=== PATIENT | female | born 1970 | race Caucasian/White ===

== ENCOUNTER 2021-02-28 21:10 | Emergency (ER) | payer SELFPAY ==
[2021-02-28 21:27] VITALS: BP 155/85; PULSE 110; RESP 20; TEMP 36.4; O2SAT 96; BMI 29.2
[2021-02-28] MEDS: nicotine 21 mg Patch 1 PATCH TRANSDERMA (22:18)
[2021-02-28] MEDS: ziprasidone 20 mg/mL SDV IM (22:23)
[2021-02-28] MEDS: water for injection-sterile 10 ML (22:24)
[2021-02-28 22:31] LABS: Eosinophils % 1.8 %; Mean Corpuscular HGB Conc 33.9 g/dL (30.0-36.0); Mean Corpuscular Hemoglobin 32.3 pg (28.0-34.0); Mean Corpuscular Volume 95.1 fl (81-99); Nucleated Red Blood Cells % 0 %
[2021-02-28 22:33] LABS: Basophils # 0.1 10^3/uL (0.0-0.1); Basophils % 0.8 %; Eosinophils # 0.3 10^3/uL (0.0-0.8); Hematocrit 50.1 % (37.0-47.0); Lymphocytes # 4.6 10^3/uL (0.8-4.8); Lymphocytes % 29.1 %; Mean Platelet Volume 9.2 fL (7.4-10.4); Monocytes # 1.1 10^3/uL (0.2-0.9); Monocytes % 6.8 %; Neutrophils # 9.62 10^3/uL (1.8-7.7); Neutrophils % 61.1 %; Platelet Count 532 10^3/cmm (130-400); Red Blood Count 5.27 10^6/uL (4.1-5.3); White Blood Count 15.8 10^3/uL (4.0-10.0)
[2021-02-28 22:34] LABS: HCG Qualitative Urine. Negative (Negative)
[2021-02-28 22:38] LABS: Add Urine Microscopic? NO; Charge for UA Resulting for Rev
[2021-02-28 22:51] LABS: Bilirubin Urine Neg (Negative); Blood Urine Neg (Negative); Glucose Urine UA Norm (Normal); Ketones Urine Negative (Negative); Leukocyte Esterase Urine Negative (Negative); Nitrate Urine Negative (Negative); Protein Urine Neg (Negative); Specific Gravity, Urine 1.005 (1.005-1.030); Urine Appearance Clear (CLEAR); Urine Color Straw (Yellow); Urobilinogen Urine Norm (Negative); pH Urine 5 (5-7)
[2021-02-28 22:57] LABS: Amphetamines Screen Urine Negative (Negative); Barbiturates Screen Urine Negative (Negative); Benzodiazepines Screen Urine Negative (Negative); Cocaine Screen Urine Negative (Negative); Opiate Screen Urine Negative (Negative); PCP Screen Urine Negative (Negative); THC Screen Urine Negative (Negative)
[2021-02-28 23:00] LABS: Alanine Aminotransferase 41 U/L (0-33); Albumin Level 4.7 g/dL (3.5-5.2); Alcohol Level 174 mg/dL (0-10); Alkaline Phosphatase 93 IU/L (35-105); Anion Gap 20.6 (5-19); Aspartate Amino Transferase 29 U/L (0-32); Blood Urea Nitrogen 7 mg/dL (6-20); Calcium 9.7 mg/dL (8.5-10.5); Carbon Dioxide 20 mmol/L (22-29); Chloride 100 mmol/L (98-107); Globulin 2.9 g/dL (1.3-4.6); Glomerular Filtration Rate 106.3 mL/min (90-130); Glucose 96 mg/dL (65-115); Osmolality Calculated 280 mOsm/kg (285-295); Potassium 4.6 mmol/L (3.5-5.1); Sodium 136 mmol/L (136-145); Total Bilirubin 0.2 mg/dL (0.15-1.2); Total Protein 7.6 g/dL (6.6-8.7)
[2021-02-28 23:02] LABS: Acetaminophen < 5.0 ug/mL (10-30); Salicylate < 0.3 mg/dL (3-10)
--- NOTE | 2021-02-28 23:04 | PC.NURSE ---
patient asked to have her neighbor called for ride home in a couple hours, neighbor called reports he will not come get her because there is too much drama.
[2021-02-28 23:22] LABS: Slide Review Slide Review Perform
--- NOTE | 2021-03-01 00:20 | W.ED.PSYCH ---
HPI - Psych General: Chief Complaint: Psychiatric Symptoms Stated Complaint: MHE Time Seen by Provider: 02/28/21 21:42 History of Present Illness: HPI Narrative: 50-year-old female who presents with anxiety . She states a lot of things are stressing her out in her life currently. She does make note that when she leaves during the daytime, people come into her house and switch things around. She says it is getting out of hand . She evidently denies suicidal ideation or homicidal ideation. She denies any hallucinations both auditory and visual. She states that she has not slept well. She says I just want some rest. complaint: feels depressed Onset (ago): day(s) Duration: constant History of same: Yes Relieving factors: none Exacerbating factors: none Associated psychiatric symptoms: depression Associated symptoms: Reports delusions and depression; Deny auditory hallucinations, visual hallucinations, homicidal ideation, suicidal ideation or racing thoughts Review of Systems Const: Denies: fever(s) or chills Eyes: Denies: change in vision ENMT: Reports: nasal discharge, nasal congestion and post nasal drip; Denies: throat pain, swelling of lips/tongue, ear or mastoid pain or sinus pain Card: Denies: chest pain Resp: Denies: dyspnea, productive cough or non-productive cough GI: Denies: abdominal pain, nausea or vomiting Psych: Reports: depression; Denies: visual hallucinations, auditory hallucinations, suicidal ideation or homicidal ideation Physical Exam Const: COMMON NORMALS: alert GENERAL APPEARANCE: anxious; not ill appearing and not frail appearing HENMT: COMMON NORMALS: normocephalic HEAD & SCALP: normocephalic Eye: COMMON NORMALS: Equal, round and reactive pupils present and EOMs intact bilaterally PUPIL: Yes Equal, round and reactive pupils present Chest: COMMONS NORMALS: normal inspection of the chest Resp: COMMON NORMALS: normal respiratory effort, No use of accessory muscles and clear to auscultation bilaterally AUSCULTATION: clear to auscultation bilaterally Cardio: COMMON NORMALS: regular rate and regular rhythm RATE: regular rate RHYTHM: regular rhythm GI: COMMON NORMALS: Normal to inspection, nondistended, normoactive bowel sounds present, Soft to palpation and non-tender PALPATION: Yes Soft to palpation Neuro: DAVINA COMA SCALE: document GCS findings Davina coma scale eye opening: Spontaneous Davina coma scale verbal response: Orientated [place] coma scale motor response: [place] commands [place] coma scale total score: 15 SENSORIUM/ORIENTATION: Yes alert SPEECH: speech normal GAIT: Yes Normal gait present Psych: COMMON NORMALS: speech normal APPEARANCE: Yes unkempt ATTITUDE: Yes engaged ACTIVITY/MOTOR BEHAVIOR: Yes appropriate eye contact SPEECH: Yes normal speech MOOD & AFFECT: Yes depressed mood and Yes tearful THOUGHT PROCESS: No confused and Loose association thought process present (mild) THOUGHT CONTENT: No Suicidality present, No Homicidality present, Yes delusions and No Hallucination(s) present ATTENTION/CONCENTRATION: Yes attention grossly intact and Yes concentration grossly intact MEMORY/COGNITION: Yes memory grossly intact and Yes cognition grossly intact INSIGHT: Fair insight present (Psych) JUDGEMENT: Fair judgement present (Psych) Course Vital Signs: Vital signs: Vital Signs Temperature 97.5 F L 02/28/21 21:27 Pulse Rate 92 03/01/21 01:17 Respiratory Rate 16 03/01/21 01:17 Blood Pressure 147/82 03/01/21 01:17 Pulse Oximetry 96 03/01/21 01:17 MDM - Psych MDM Narrative: Medical decision making narrative: Patient medically appears stable. She does have a mild leukocytosis. Her bicarbonate level is low indicating some mild dehydration likely. She is awake and alert. She answers most questions appropriately. She denies suicidality or homicidality. She does appear to have some delusions historically. She does not appear to be a danger to herself. She wishes to go home after injection of Geodon, and some rest here. She is worried about her cat. She appears much improved. She will be allowed discharge Lab Data: Labs: Lab Results 02/28/21 02/28/21 02/28/21 22:08 22:08 22:08 WBC RBC Hgb Hct MCV MCH MCHC RDW Plt Count MPV Neut % (Auto) Lymph % (Auto) [place] % (Auto) Eos % (Auto) Baso % (Auto) Neut # (Auto) Lymph # (Auto) [place] # (Auto) Eos # (Auto) Baso # (Auto) Nucleated RBC % (a uto) Nucleated RBCs # Sodium Potassium Chloride Carbon Dioxide Anion Gap BUN Creatinine GFR Calculation Glucose Calculated Osmolal ity Calcium Total Bilirubin AST ALT Alkaline Phosphata se Total Protein Albumin Globulin HCG, Qual Negative (Negative) Urine Color Straw (Yellow) Urine Appearance Clear (CLEAR) Urine pH 5 (5-7) Ur Specific Gravit y 1.005 (1.005-1.030) Urine Protein Neg (Negative) Urine Glucose (UA) Norm (Normal) Urine Ketones Negative (Negative) Urine Blood Neg (Negative) Urine Nitrate Negative (Negative) Urine Bilirubin Neg (Negative) Urine Urobilinogen Norm mg/dL mg/dL (Negative) Ur Leukocyte Porsche ase Negative (Negative) Salicylates Urine Opiates Scre en Negative ng/mL ng /mL (Negative) Acetaminophen Ur Barbiturates Sc reen Negative ng/mL ng /mL (Negative) Ur Phencyclidine S crn Negative ng/mL ng /mL (Negative) Ur Amphetamines Sc reen Negative ng/mL ng /mL (Negative) U Benzodiazepines Scrn Negative ng/mL ng /mL (Negative) Urine Cocaine Scre en Negative ng/mL ng /mL (Negative) U Marijuana (THC) Screen Negative ng/mL ng /mL (Negative) Ethyl Alcohol 02/28/21 02/28/21 22:12 22:12 WBC 15.8 10^3/uL H 10 ^3/uL (4.0-10.0) RBC 5.27 10^6/uL 10^6 /uL (4.1-5.3) Hgb 17.0 g/dL H g/dL (11.5-15.3) Hct 50.1 % H % (37.0-47.0) MCV 95.1 fl fl (81-99) MCH 32.3 pg pg (28.0-34.0) MCHC 33.9 g/dL g/dL (30.0-36.0) RDW 12.0 % L % (12.1-15.1) Plt Count 532 10^3/cmm H 10 ^3/cmm (130-400) MPV 9.2 fL fL (7.4-10.4) Neut % (Auto) 61.1 % % Lymph % (Auto) 29.1 % % [place] % (Auto) 6.8 % % Eos % (Auto) 1.8 % % Baso % (Auto) 0.8 % % Neut # (Auto) 9.62 10^3/uL H 10 ^3/uL (1.8-7.7) Lymph # (Auto) 4.6 10^3/uL 10^3/ uL (0.8-4.8) [place] # (Auto) 1.1 10^3/uL H 10^ 3/uL (0.2-0.9) Eos # (Auto) 0.3 10^3/uL 10^3/ uL (0.0-0.8) Baso # (Auto) 0.1 10^3/uL 10^3/ uL (0.0-0.1) Nucleated RBC % (a uto) 0 % % Nucleated RBCs # 0.0 /100WBC /100W BC Sodium 136 mmol/L mmol/L (136-145) Potassium 4.6 mmol/L mmol/L (3.5-5.1) Chloride 100 mmol/L mmol/L (98-107) Carbon Dioxide 20 mmol/L L mmol/ L (22-29) Anion Gap 20.6 H (5-19) BUN 7 mg/dL mg/dL (6-20) Creatinine 0.6 mg/dL mg/dL (0.5-0.9) GFR Calculation 106.3 mL/min mL/m in (90-130) Glucose 96 mg/dL mg/dL (65-115) Calculated Osmolal ity 280 mOsm/kg L mOs m/kg (285-295) Calcium 9.7 mg/dL mg/dL (8.5-10.5) Total Bilirubin 0.2 mg/dL mg/dL (0.15-1.2) AST 29 U/L U/L (0-32) ALT 41 U/L H U/L (0-33) Alkaline Phosphata se 93 IU/L IU/L (35-105) Total Protein 7.6 g/dL g/dL (6.6-8.7) Albumin 4.7 g/dL g/dL (3.5-5.2) Globulin 2.9 g/dL g/dL (1.3-4.6) HCG, Qual Urine Color Urine Appearance Urine pH Ur Specific Gravit y Urine Protein Urine Glucose (UA) Urine Ketones Urine Blood Urine Nitrate Urine Bilirubin Urine Urobilinogen Ur Leukocyte [place]orsche ase Salicylates < 0.3 mg/dL L mg/ dL (3-10) Urine Opiates Scre en Acetaminophen < 5.0 ug/mL L ug/ mL (10-30) Ur Barbiturates Sc reen Ur Phencyclidine S crn Ur Amphetamines Sc reen U Benzodiazepines Scrn Urine Cocaine Scre en U Marijuana (THC) Screen Ethyl Alcohol 174 mg/dL H mg/dL (0-10) Discharge Plan Discharge Patient Disposition: Home Clinical Impression: Depression Qualifiers: Depression Type: major depressive disorder Major depression recurrence: recurrent Active/Remission status: currently active Major depression episode severity: moderate Qualified Code(s): F33.1 - Major depressive disorder, recurrent, moderate Condition: Stable Discharge Orders: Discharge ED (Routine); Ordered 03/01/21 Ordered By: Leobardo Hook Discharge Diet: Advance as tolerated Discharge Activity: Increase activity as tolerated Patient Instructions: Depression (ED) Activity Restrictions/Additional Instructions: Return for any wishes or thoughts to harm your self or anyone else. A case management referral has been placed to set you up with behavioral health as an outpatient. You should get a call at the beginning of the week about this. 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
[2021-03-01 01:17] VITALS: BP 147/82; PULSE 92; RESP 16; O2SAT 96
--- NOTE | 2021-03-04 15:38 | DCPLANNER ---
operations program manager had message to speak with patient about services at [facility]. operations program manager called phone number [phone], unable to speak with patient at this time, a voicemail was left for patient to return case assistant phone call.
== END 2021-03-01 01:10 | disposition home or self-care (01) ==
PROVIDERS: Emergency Provider Emergency Medicine
DX: F33.1 Major depressive disorder, recurrent, moderate (principal)
CPT/HCPCS: 80053; 80306; 80307; 81003; 81025; 85025; 96372; 99283; J3486